=== PATIENT | male | born 1975 | race Caucasian/White ===

== ENCOUNTER 2021-06-05 13:58 | Emergency (ER) | payer OTHER ==
[2021-06-05 14:09] VITALS: TEMP 98.7; BMI 33.2
[2021-06-05 15:19] LABS: BASO % 0.5 % (0-2.0); HEMATOCRIT 45.9 % (35.4-49); HEMOGLOBIN 15.6 GM/dL (11.7-16.9); LYMPH % 14.6 % (8-40); MEAN CELL VOLUME 88.1 fl (80-96); MEAN PLT VOLUME 8.4 fl (7.5-11.1); MONO % 8.7 % (3.8-10.2); NEUT % 75.2 % (42.8-82.8); PLATELET COUNT 214 10^3/uL (134-434); RBC 5.21 M/mm3 (4.00-5.60); RDW 13.1 % (11.9-15.9); WHITE BLOOD COUNT 9.3 K/mm3 (4.0-10.0)
[2021-06-05 15:43] LABS: CHLORIDE 100 mmol/L (98-107); SODIUM 138 mmol/L (136-145)
[2021-06-05 15:46] LABS: ALBUMIN 4.5 g/dl (3.4-5.0); ANION GAP 6 MMOL/L (8-16); BLOOD UREA NITROGEN 16.5 mg/dL (7-18); CALCIUM 10.2 mg/dL (8.5-10.1); CO2 32 mmol/L (21-32); GLUCOSE,RANDOM 98 mg/dL (74-106); MAGNESIUM 2.2 mg/dL (1.8-2.4)
[2021-06-05 15:49] LABS: CREATININE 1.1 mg/dL (0.55-1.3); SGOT/AST 24 U/L (15-37); SGPT/ALT 28 U/L (13-61)
[2021-06-05 15:50] LABS: BILIRUBIN,TOTAL 0.4 mg/dL (0.2-1)
[2021-06-05 15:51] LABS: TOT PROT 8.2 g/dl (6.4-8.2)
[2021-06-05 15:52] LABS: ALK PHOS 74 U/L (45-117)
[2021-06-05] MEDS ORDERED: SODIUM CHLORIDE 0.9% 500 ML INFUS.BAG IV ONE (16:02)
[2021-06-05 18:47] VITALS: BP 128/73; PULSE 86
== END 2021-06-05 18:47 | disposition home or self-care (01) ==
LOC: JER 13:58
DX: R42 Dizziness and giddiness (principal)
CPT/HCPCS: 36415; 71046-TC-FY; 80053; 83036; 83735; 84100; 84484; 85025; 93005; 93010; 99284-25; C9803; U0003; U0005